=== PATIENT | female | born 1980 | race Caucasian/White ===

== ENCOUNTER 2025-06-26 11:38 | Emergency (ER) | payer SELFPAY | END 2025-06-26 12:30 | disposition home or self-care (01) | LOC: JD.ED 11:38 | DX: S02.5XXB Fracture of tooth (traumatic), initial encounter for open fracture (principal); F17.290 Nicotine dependence, other tobacco product, uncomplicated; Z88.0 Allergy status to penicillin; X58.XXXD Exposure to other specified factors, subsequent encounter | CPT/HCPCS: 99283; A9270 ==